=== PATIENT | female | born 1965 | race Caucasian/White ===

== ENCOUNTER 2019-02-02 10:22 | Emergency (ER) | payer MEDICAID ==
[2019-02-02] MEDS: ACETAMINOPHEN 500 MG TAB PO (12:48)
== END 2019-02-02 14:11 | disposition home or self-care (01) ==
LOC: FTE 10:22
DX: J02.9 Acute pharyngitis, unspecified (principal); K21.9 Gastro-esophageal reflux disease without esophagitis
CPT/HCPCS: 87880; 99283